=== PATIENT | female | born 1995 | race Caucasian/White ===

== ENCOUNTER 2017-03-18 17:46 | Emergency (ER) | payer BC, OTHER ==
[2017-03-18] MEDS ORDERED: IV NORMAL SALINE 1,000ML 1,000 ML IV ONE ×2 (18:30→19:30)
[2017-03-18] MEDS ORDERED: CONTRAST GIVEN MC PRN (18:30)
[2017-03-18] MEDS ORDERED: HYDROmorphone PF 2 MG/ML VIAL ONE ×3 (18:35→21:44)
[2017-03-18] MEDS ORDERED: ONDANSETRON PF 4 MG/2 ML VIAL. ONE (18:37)
[2017-03-18] MEDS ORDERED: IOHEXOL 300 MG/ML 75 ML VIAL. IV ONE (18:45)
[2017-03-18 18:51] LABS: BASO # 0.1 x10^3/uL (0.0-0.2); BASO % 1 % (0-3); EOS % 0 % (0-3); HEMATOCRIT 39.3 % (36.0-47.0); HEMOGLOBIN 13.3 g/dL (12.0-15.5); LYMPH # 0.8 x10^3/uL (1.0-4.8); LYMPH % 7 % (24-48); MEAN CORPUSCULAR HEMOGLOBIN 29 pg (25-35); MEAN CORPUSCULAR HGB CONC 34 g/dL (31-37); MEAN CORPUSCULAR VOLUME 87 fL (79-100); MONO # 0.8 x10^3/uL (0.0-1.1); MONO % 7 % (0-9); NEUT # 10.3 x10^3uL (1.8-7.7); NEUT % 86 % (31-73); PLATELET COUNT 352 x10^3/uL (140-400); RED BLOOD COUNT 4.51 x10^6/uL (3.50-5.40); RED CELL DISTRIBUTION WIDTH 13.3 % (11.5-14.5)
[2017-03-18] MEDS ORDERED: HYDROmorphone PF 1 MG/ML DISP.SYRIN IV ONE (19:00)
[2017-03-18] MEDS ORDERED: ONDANSETRON PF 4 MG/2 ML VIAL. IV ONE ×2 (19:00→21:15)
[2017-03-18 19:02] LABS: ALBUMIN 2.7 g/dL (3.4-5.0); ALBUMIN/GLOBULIN RATIO 0.7 (1.0-1.7); CALCIUM 8.8 mg/dL (8.5-10.1); CREATININE 0.6 mg/dL (0.6-1.0); GFR 123.9; POTASSIUM 4.4 mmol/L (3.5-5.1); TOTAL BILIRUBIN 0.8 mg/dL (0.2-1.0); TOTAL PROTEIN 6.6 g/dL (6.4-8.2)
--- NOTE | 2017-03-18 19:26 | RAD ---
EXAM: Abdomen and pelvis CT with intravenous contrast. HISTORY: Pain. Recent IVF egg retrieval procedure. TECHNIQUE: Computed tomographic images of the abdomen and pelvis were obtained following the administration of 60 cc Omnipaque 300 intravenous contrast. Multiplanar reformatting was performed. *One or more of the following individualized dose reduction techniques were utilized for this examination: 1. Automated exposure control. 2. Adjustment of the mA and/or kV according to patient size. 3. Use of iterative reconstruction technique. COMPARISON: None. FINDINGS: Evaluation of the lower thorax demonstrates small left greater than right pleural effusions. There is bilateral posterior dependent and basilar atelectasis. The heart is normal in size. No hepatic lesion is seen. The gallbladder, pancreas, spleen, adrenal glands and kidneys are unremarkable. The ovaries are severely enlarged and contain extensive follicular cysts due to recent ovarian hyperstimulation. For reference purposes, the left ovary measures approximately 9.2 cm in maximum dimension and the right ovary measures 9.8 cm in maximum dimension. There is hyperdensity within several of the follicular cyst likely due to hemorrhage. There is moderate ascites. The uterus and bladder are unremarkable. No pathologically enlarged lymph node is seen. There is moderate colonic stool. There is no bowel obstruction. There are prominent air and fluid-filled loops of small bowel within the left abdomen, possibly due to a component of ileus given the presence of abdominal ascites. The appendix is surgically absent. No suspicious osseous lesion is seen. There multiple thoracic and lumbar endplate Schmorl's nodes. IMPRESSION: 1. Severely enlarged ovaries containing extensive follicular cysts due to recent ovarian hyperstimulation. There is hyperdensity within several of the follicular cyst likely due to intracystic hemorrhage. There is moderate abdominal ascites and there are small left greater than right pleural effusions due to secondary ovarian hyperstimulation syndrome. 2. Prominent air and filled fluid small bowel within the left abdomen, possibly due to segmental ileus in the setting of ascites. There is no bowel obstruction. Electronically signed by: Edna Hastings MD (03/18/2017 7:22 PM) [facility]
[2017-03-18 20:02] LABS: COLOR,URINE AMBER
[2017-03-18 20:03] LABS: BACTERIA,URINE MOD /HPF (0-FEW); BILIRUBIN,URINE NEG (NEG); CLARITY,URINE HAZY; GLUCOSE,URINE NEG (NEG); NITRITE,URINE NEG (NEG); RBC,URINE OCC /HPF (0-2); SQUAMOUS EPITHELIAL CELL,UR MOD /LPF; UROBILINOGEN,URINE 0.2 mg/dL (0.2 mg/dL)
[2017-03-18 20:05] LABS: AMORPHOUS SEDIMENT,UR PRESENT /HPF
[2017-03-18] MEDS: HYDROmorphone PF 2 MG/ML VIAL IV PRN ×2 (20:11→21:45)
[2017-03-18 22:13] VITALS: BP 112/69
[2017-03-19 00:31] LABS: HEMOGLOBIN ISTAT 11.6 gm/dL; POTASSIUM ISTAT 4.4 mmol/L (3.5-5.0)
--- NOTE | 2017-03-19 04:29 | PHYS DOC ---
Past History Past Medical History: Other Past Surgical History: Appendectomy, Other Alcohol Use: None Drug Use: None Adult General Chief Complaint Chief Complaint: ABDOMINAL PAIN HPI HPI A 1-year-old female with a history of infertility recently participated in egg harvesting dissipation of in vitro fertilization. Patient experienced post procedural complications from what she was told was ovarians overstimulation. Patient ended up being admitted to the hospital because of pelvic bleeding after which patient describes 750 mL of blood was removed from inside her pelvis with a needle. She was then admitted overnight and observed. By patient' s description serial hemoglobins improved from 9 to greater than 10 during that night of admission and she was eventually deemed adequately stable and discharged home yesterday. Patient has not moved her bowels well for several days but does not have any rectal pressure and no reports blood per rectum at any time. She now returns to the emergency department because of severe abdominal pain and lightheadedness. Patient has been experiencing nausea as well. Denies fevers chills sweats or shaking chills. By her description pain waxes and wanes and is sometimes profound. Her by mouth home analgesic regimen has been inadequate and relief subtotal. Patient requested ambulance transport to [facility] are she was just released yesterday however EMS told her they were unable to do it because of limited ambulance availability locally Review of Systems Review of Systems Constitutional: Denies fever or chills [] Eyes: Denies change in visual acuity, redness, or eye pain [] HENT: Denies nasal congestion or sore throat [] Respiratory: Denies cough or shortness of breath [] Cardiovascular: No additional information not addressed in HPI [] GI: Denies abdominal pain, nausea, vomiting, bloody stools or diarrhea [] : Denies dysuria or hematuria [] Musculoskeletal: Denies back pain or joint pain [] Integument: Denies rash or skin lesions [] Neurologic: Denies headache, focal weakness or sensory changes [] Endocrine: Denies polyuria or polydipsia [] Current Medications Current Medications Current Medications Medications (Trade) Dose Ordered Sig/Judy Start Time Stop Time Status Last Admin Dose Admin Hydromorphone HCl (Dilaudid) 0.5 mg PRN Q2HR PRN 03/18/17 22:00 Info (Do NOT chart on this entry -- for MONITORING) 1 each PRN DAILY PRN 03/18/17 18:30 03/20/17 18:29 Iohexol (Omnipaque 300 Mg/ml) 75 ml 1X ONCE 03/18/17 18:45 03/18/17 18:47 DC 03/18/17 19:05 75 ML Ondansetron HCl (Zofran) 4 mg 1X ONCE 03/18/17 21:15 03/18/17 21:16 DC 03/18/17 21:01 4 MG Sodium Chloride 1,000 ml @ 1,000 mls/hr 1X ONCE 03/18/17 19:30 03/18/17 20:29 DC 03/18/17 19:15 1,000 MLS/HR Allergies Allergies Allergies Coded Allergies Type Severity Reaction Last Updated Verified No Known Drug Allergies 06/16/16 No Physical Exam Physical Exam Uncomfortable but otherwise healthy-appearing 21-year-old female in mild distress complaining of abdominal pain. Supple neck, clear lungs, regular rate and rhythm no tachycardia. Significant diffuse abdominal tenderness with voluntary guarding. Decreased bowel sounds diffusely, no CVA tenderness Constitutional: Well developed, well nourished HENT: Normocephalic, atraumatic, bilateral external ears normal, oropharynx moist, no oral exudates, nose normal. [] Eyes: PERRLA, EOMI, conjunctiva normal, no discharge. [] Neck: Normal range of motion, no tenderness, supple, no stridor. [] Cardiovascular:Heart rate regular rhythm, no murmur [] Lungs & Thorax: Bilateral breath sounds clear to auscultation [] Abdomen: As above Skin: Warm, dry, no erythema, no rash. [] Back: No tenderness, no CVA tenderness. [] Extremities: No tenderness, no cyanosis, no clubbing, ROM intact, no edema. [] Neurologic: Alert and oriented X 3, normal motor function, normal sensory function, no focal deficits noted. [] Psychologic: Anxious affect, judgement normal Current Patient Data Vital Signs Vital Signs Date Time Temp Pulse Resp B/P (MAP) Pulse Ox O2 Delivery O2 Flow Rate FiO2 03/18/17 18:43 86 16 123/70 (87) 03/18/17 17:46 97.8 98 Room Air Lab Results Laboratory Tests Test 03/18/17 18:25 03/18/17 18:52 03/18/17 19:30 03/18/17 19:52 White Blood Count 12.0 x10^3/uL (4.0-11.0) H Red Blood Count 4.51 x10^6/uL (3.50-5.40) Hemoglobin 13.3 g/dL (12.0-15.5) Hematocrit 39.3 % (36.0-47.0) Mean Corpuscular Volume 87 fL (79-100) Mean Corpuscular Hemoglobin 29 pg (25-35) Mean Corpuscular Hemoglobin Concent 34 g/dL (31-37) Red Cell Distribution Width 13.3 % (11.5-14.5) Platelet Count 352 x10^3/uL (140-400) Neutrophils (%) (Auto) 86 % (31-73) H Lymphocytes (%) (Auto) 7 % (24-48) L Monocytes (%) (Auto) 7 % (0-9) Eosinophils (%) (Auto) 0 % (0-3) Basophils (%) (Auto) 1 % (0-3) Neutrophils # (Auto) 10.3 x10^3uL (1.8-7.7) H Lymphocytes # (Auto) 0.8 x10^3/uL (1.0-4.8) L Monocytes # (Auto) 0.8 x10^3/uL (0.0-1.1) Eosinophils # (Auto) 0.0 x10^3/uL (0.0-0.7) Basophils # (Auto) 0.1 x10^3/uL (0.0-0.2) Maternal Serum HCG Beta Subunit 35 mIU/mL (0-6) H Sodium Level 135 mmol/L (136-145) L Potassium Level 4.4 mmol/L (3.5-5.1) Chloride Level 100 mmol/L (98-107) Carbon Dioxide Level 27 mmol/L (21-32) Anion Gap 8 (6-14) 15 mmol/L (6-14) H Blood Urea Nitrogen 7 mg/dL (7-20) Creatinine 0.6 mg/dL (0.6-1.0) Estimated GFR (Cockcroft-Gault) 123.9 BUN/Creatinine Ratio 12 (6-20) Glucose Level 99 mg/dL (70-99) 96 mg/dL (60-99) Calcium Level 8.8 mg/dL (8.5-10.1) Total Bilirubin 0.8 mg/dL (0.2-1.0) Aspartate Amino Transferase (AST) 42 U/L (15-37) H Alanine Aminotransferase (ALT) 58 U/L (14-59) Alkaline Phosphatase 81 U/L (46-116) Total Protein 6.6 g/dL (6.4-8.2) Albumin 2.7 g/dL (3.4-5.0) L Albumin/Globulin Ratio 0.7 (1.0-1.7) L Lipase 74 U/L (73-393) POC Hemoglobin 11.6 gm/dL POC Hematocrit 34 % POC Sodium 135 mmol/L (135-145) POC Potassium 4.4 mmol/L (3.5-5.0) POC Chloride 101 mmol/L (98-110) POC Total CO2 25 mmol/L (23-32) POC Blood Urea Nitrogen 6 mg/dL (8-26) L POC Creatinine 0.7 mg/dL (0.5-1.4) POC Ionized Calcium (David) 1.12 mmol/L (1.13-1.32) L Urine Collection Type Unknown Urine Color Lita Urine Clarity Hazy Urine pH 8.5 Urine Specific Binford 1.015 Urine Protein Neg (NEG-TRACE) Urine Glucose (UA) Neg mg/dL (NEG) Urine Ketones (Stick) Trace mg/dL (NEG) Urine Blood Trace (NEG) Urine Nitrite Neg (NEG) Urine Bilirubin Neg (NEG) Urine Urobilinogen Dipstick 0.2 mg/dL (0.2 mg/dL) Urine Leukocyte Esterase Trace (NEG) Urine RBC Occ /HPF (0-2) Urine WBC 1-4 /HPF (0-4) Urine Squamous Epithelial Cells Mod /LPF Urine Amorphous Sediment Present /HPF Urine Bacteria Mod /HPF (0-FEW) Urine Mucus Slight /LPF POC Urine HCG, Qualitative hcg positive (Negative) EKG EKG [] Radiology/Procedures Radiology/Procedures [] Course & Med Decision Making Course & Med Decision Making Pertinent Labs and Imaging studies reviewed. (See chart for details) 2 with a recent history of postprocedural intrapelvic bleeding now presents to the emergency department with worsening pain nausea vomiting and lightheadedness , with the clinical picture suggestive of the possibility of peritoneal irritation from possible recurrence of bleeding. Patient mildly hypotensive on arrival with systolic blood pressure of 90. Bilateral IV access was obtained and IV fluids initiated. Patient will be kept nothing by mouth. Type and screen initiated to provide for the possibility of needing blood. This was probably discussed with Dr. santos the fertility specialist to [facility]. Dr. santos feels it is very unlikely that this represents a complication of her procedure and she feels that the patient is likely constipated alone. Dr. santos feels that it's more appropriate for the patient to go to the medicine service at her hospital, however transfer is definitely still indicated given that we do not have inpatient availability for consultation by [facility]. Patient and family would like her to be cared for at [facility] as evidenced by the requests to be transported there by EMS initially. Her santos requested results of labs and CT prior to accepting the patient in transfer and she requests to be contacted with this information after its obtained. With elevated white count however hemoglobin stable. Pressure improved with 2 L of IV fluid. White blood cell count elevated at 12.0. Patient with hypoalbuminemia at 2.7. CT shows really enlarged ovaries bilaterally consistent with recent ovarian hyperstimulation with intracystic hemorrhage with intellectual or cysts. If further comments moderate abdominal ascites and left greater than right pleural effusions however patient has no respiratory symptoms prehospital or since arrival. The CT also reports prominent small bowel possibly due to segmental ileus in the setting of this ascites but no evidence of bowel obstruction. These results were promptly communicated with [facility] transfer center nurse liaison Yamile. She'll described that her hospitalist was unwilling to accept the patient in transfer until hearing back from that she would be willing to provide contributory care with her consultative services. After more than an hour and a half I was notified that patient will be accepted by Dr. Ravin Garber the [facility] hospitalist service. Patient stable for transfer. She is clearly manifesting multiple complications of her procedure for egg harvesting in the resultant ovarian hyperstimulation with associated syndrome. Therefore continues to be appropriate for this patient be transferred to a higher level of care with [facility] availability and consultation as well as contributory care of her fertility specialist who orchestrated and performed this procedure. Patient and family agree with transferring consent verbally. She is stable upon transfer Critical care 75 minutes Dragon Disclaimer Dragon Disclaimer This chart was dictated in whole or in part using Voice Recognition software in a busy, high-work load, and often noisy Emergency Department environment. It may contain unintended and wholly unrecognized errors or omissions. Departure Departure: Impression: Primary Impression: Intractable abdominal pain Additional Impressions: Intractable nausea and vomiting Leukocytosis Ascites Hypoalbuminemia Bilateral pleural effusion Hypotension Disposition: 05 XFER OTHER Condition: STABLE Referrals: RADHA PERAZA-JAMES (PCP) Problem Qualifiers TORREY GARCIA MD Mar 19, 2017 04:29
== END 2017-03-18 22:23 | disposition short-term general hospital (02) ==
LOC: ER 17:46
DX: R10.9 Unspecified abdominal pain (principal); R11.2 Nausea with vomiting, unspecified; D72.829 Elevated white blood cell count, unspecified; R18.8 Other ascites; E88.09 Other disorders of plasma-protein metabolism, not elsewhere classified; J90 Pleural effusion, not elsewhere classified; I95.9 Hypotension, unspecified; Z90.49 Acquired absence of other specified parts of digestive tract
CPT/HCPCS: 36415; 74177; 80047; 80053; 81001; 81025; 83690; 84702; 85025; 86850; 86900; 86901; 96360; 96361; 96374; 96375; 96376; 99291; 99292; J1170; J2405; Q9967; J7030